=== PATIENT | male | born 2000 | race Caucasian/White ===

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

== ENCOUNTER 2022-06-27 04:06 | Emergency (ER) | payer MEDICAID ==
[~2022-06-27] VITALS: Ht 188 cm; Wt 86.3 kg
[~2022-06-27 04:06] MED LIST: PANT-47 PO
[2022-06-27 06:06] VITALS: BP 121/86
== END 2022-06-27 08:46 | disposition left against medical advice (07) ==
LOC: ER 04:07
DX: M79.643 Pain in unspecified hand (principal); Z53.21 Procedure and treatment not carried out due to patient leaving prior to being seen by health care provider
CPT/HCPCS: 73130